=== PATIENT | female | born 1955 | race Caucasian/White ===

== ENCOUNTER 2017-02-12 16:34 | Emergency (ER) | payer BC ==
[~2017-02-12] VITALS: Ht 170.2 cm; Wt 136.1 kg
--- NOTE | 2017-02-12 16:40 | NUR ---
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 SEEN BY MD FOR EVAL. DENIES LOC, DENIES HEAD/NECK TRAUMA. VSS. SAFETY AND COMFORT MEASURES PROVIDED. WILL MONITOR.
--- NOTE | 2017-02-12 17:15 | NUR ---
PT MEDICATED ORDERED.
--- NOTE | 2017-02-12 17:46 | NUR ---
PT TAKEN FOR XRAY.
--- NOTE | 2017-02-12 18:50 | NUR ---
Patient discharged to home in stable condition. Written and verbal after care instructions given. Patient verbalizes understanding of instruction.
[2017-02-12 19:07] VITALS: BP 131/71
== END 2017-02-12 19:11 | disposition home or self-care (01) ==
LOC: ER 16:36
DX: M25.551 Pain in right hip (principal); M79.651 Pain in right thigh; M25.561 Pain in right knee; E11.9 Type 2 diabetes mellitus without complications; F32.9 Major depressive disorder, single episode, unspecified; I10 Essential (primary) hypertension; J45.909 Unspecified asthma, uncomplicated; Z86.718 Personal history of other venous thrombosis and embolism; W19.XXXA Unspecified fall, initial encounter; Y92.89 Other specified places as the place of occurrence of the external cause; Y93.89 Activity, other specified; Y99.8 Other external cause status
CPT/HCPCS: 73502; 73552; 73564-TC; A4606; J2270; Q0162; Z7610